=== PATIENT | female | born 1950 | race Caucasian/White ===

== ENCOUNTER 2024-10-09 13:18 | Observation (INO) | payer MEDICARE, OTHER ==
[2024-10-09] MEDS ORDERED: Dextrose 5% in Water 1,000 ML IV PRN (14:28)
[2024-10-09] MEDS ORDERED: Glucagon 1 MG/ML KIT IM PRN (14:28)
[2024-10-09] MEDS ORDERED: Insulin Lispro 100 UNIT/ML 10 ML VIAL SC PRN (14:28)
[2024-10-09] MEDS ORDERED: Dextrose 50% Abboject 50 ML SYRINGE SLOW IVP PRN (14:28)
[2024-10-09] MEDS ORDERED: Meclizine HCl 12.5 MG TAB PO PRN (14:29)
[2024-10-09 14:36] VITALS: BMI 24.6
[2024-10-09] MEDS: hydrALAZINE 20 MG/ML VIAL SLOW IVP PRN (16:56)
[2024-10-10 04:26] LABS: #Basophils 0.09 10x3/uL (0.0-0.2); #Eosinophils 0.33 10x3/uL (0.0-0.5); #Monocytes 0.88 10x3/uL (0.0-1.1); #Neutrophils 3.09 10x3/uL (1.5-8.4); %Basophils 1.1 % (0.0-2.0); %Monocytes 10.6 % (0.0-10.0); %Neutrophils 37.3 % (40.0-75.0); Hematocrit 36.5 % (34.9-44.5); Hemoglobin 12.6 g/dL (12.0-15.5); Mean Corpuscular HGB CONC 34.5 g/dL (32.0-36.0); Mean Corpuscular Hemoglobin 33.2 pg (27.0-33.0); Mean Corpuscular Volume 96.1 fL (81.6-98.3); Mean Platelet Volume 9.3 fL (7.4-10.4); Platelet Count 345 10x3/uL (150-450); RBC Distribution Width 12.8 % (11.5-14.5); White Blood Cell (WBC) Count 8.3 10x3/uL (3.5-10.5)
[2024-10-10 04:39] LABS: Anion Gap 12 mmol/L (10-20); BUN (Urea Nitrogen) 11 mg/dL (9.8-20.1); Calc. Creatinine Clearance 64 mL/min (70-130); Calcium 9.6 mg/dL (7.8-10.44); Carbon Dioxide 25 mmol/L (23-31); Cardiac Risk 4.5 (Less than 4.5); Chloride 106 mmol/L (98-107); Cholesterol 174 mg/dl (< 200 Desired); Estimated GFR 72; Glucose 97 mg/dL (83-110); HDL Cholesterol 39 mg/dL (>60 Neg Risk); LDL Cholesterol, Calculated 101 mg/dL; Potassium 3.8 mmol/L (3.5-5.1); Sodium 139 mmol/L (136-145); Triglycerides 172 mg/dL (Less than 150)
[2024-10-10] MEDS: Enoxaparin 40 MG (0.4 mL) SYRINGE SC SCH (08:22)
[2024-10-10] MEDS: Lisinopril 20 MG TAB PO SCH (08:23)
[2024-10-10] MEDS: Pantoprazole DR 40 MG TAB PO SCH (09:18)
[2024-10-10] MEDS: Acetaminophen 325 MG TAB PO PRN (09:18)
[2024-10-10 11:23] VITALS: BP 134/75; TEMP 97.9
[2024-10-10] MEDS ORDERED: Magnevist 469MG/ML 20 ML VIAL ONE (14:53)
[2024-10-11] MEDS ORDERED: FLU (Fluad Triv) TS24-25 (65UP)/MF59C/PF 45 MCG/0.5 ML Syringe IM ONE (09:00)
== END 2024-10-10 15:49 | disposition home or self-care (01) ==
LOC: CSHTELE 14:04 → INTOOBSV 14:04
PROVIDERS: ADMIT Internal Medicine; ATTEND Internal Medicine
DX: R42 Dizziness and giddiness (principal); I10 Essential (primary) hypertension; E11.9 Type 2 diabetes mellitus without complications; Z90.49 Acquired absence of other specified parts of digestive tract; Z88.2 Allergy status to sulfonamides; Z88.1 Allergy status to other antibiotic agents; Z79.84 Long term (current) use of oral hypoglycemic drugs; Z79.82 Long term (current) use of aspirin; Z79.899 Other long term (current) drug therapy
CPT/HCPCS: 70551; 70553; 76376; 80048; 80061; 82962 ×2; 85025; 93306; 96372; 96374; 96376; 97116; 97535; G0378 ×2; J0360 ×2; J1650; 36415; 36416